=== PATIENT | male | born 1955 | race Caucasian/White ===

== ENCOUNTER 2017-03-22 16:26 | Observation (INO) | payer BC, SELFPAY ==
[~2017-03-22 16:26] MED LIST: ISOVUE-370 76%-LOCM 1 ML ONE
[2017-03-22] MEDS ORDERED: Ondansetron ODT 4 MG TAB ONE (16:54)
[2017-03-22 18:44] LABS: #Basophils 0.1 thou/uL (0.0-0.2); #Lymphocytes 1.3 thou/uL (1.20-3.40); #Monocytes 0.8 thou/uL (0.11-0.59); #Neutrophils 4.1 thou/uL (1.40-6.50); %Basophils 0.9 % (0.0-1.0); %Eosinophils 0.4 % (0.0-10.0); %Lymphocytes 21.4 % (21.0-51.0); %Monocytes 12.3 % (0.0-10.0); Hematocrit 43.8 % (42.0-52.0); Red Blood Cell (RBC) Count 4.36 mill/uL (4.70-6.10); White Blood Cell (WBC) Count 6.3 thou/uL (4.8-10.8)
[2017-03-22 19:07] LABS: ALT (SGPT) 24 U/L (8-55); AST (SGOT) 24 U/L (5-34); Alkaline Phosphatase 135 U/L (40-150); Anion Gap 17 mmol/L (10-20); BUN (Urea Nitrogen) 9 mg/dL (8.4-25.7); Bilirubin, Total 0.4 mg/dL (0.2-1.2); Calc. Creatinine Clearance 0 mL/min (70-130); Carbon Dioxide 22 mmol/L (23-31); Chloride 102 mmol/L (98-107); Estimated GFR-MDRD Greater than 90; Protein, Total 7.4 g/dL (5.8-8.1)
[2017-03-22 19:45] LABS: Bilirubin Negative (Negative); Blood, Urine Negative (Negative); Glucose, Urine (Dipstick) Negative (Negative); Ketone, Urine Negative (Negative); Nitrite Negative (Negative); Protein, Urine (Dipstick) Trace mg/dL (Neg-Trace); Urobilinogen 0.2 mg/dL (0.2-1.0)
[2017-03-22 19:55] LABS: Amphetamine Not Detected (NotDetected); Methadone Not Detected (NotDetected); Methamphetamine Not Detected (NotDetected)
[2017-03-22 20:18] LABS: Acetaminophen Less than 6.0 mcg/mL (10.0-30.0); Salicylate Less than 8.0 mg/dL (15.0-30.0)
[2017-03-22] MEDS ORDERED: Ondansetron HCl/PF 4 MG/2 ML Vial ONE (20:24)
[2017-03-22] MEDS ORDERED: Morphine 4 MG/ML VIAL ONE ×2 (20:24→23:49)
[2017-03-22] MEDS ORDERED: Multivitamins, Adult 10 ML, Thiamine HCl 100 MG, Folic Acid 1 MG in Dextrose 5 %-0.45 %... IV SCH ×4 (20:30)
[2017-03-22] MEDS ORDERED: diphenhydrAMINE 50 MG/ML VIAL ONE (21:12)
[2017-03-22] MEDS ORDERED: methylPREDNISolone Sod Succ/PF 125 MG/2 ML VIAL ONE (21:13)
[2017-03-22] MEDS ORDERED: Famotidine/PF 20 mg/2ml Vial ONE (21:13)
[2017-03-22 22:19] LABS: Troponin I Less than 0.010 ng/mL (< 0.028)
--- NOTE | 2017-03-22 23:18 | CT ---
CT ABDOMEN AND PELVIS WITH IV CONTRAST 03/22/17 PROVIDED CLINICAL HISTORY: Right lower quadrant pain. FINDINGS: The visualized lung bases appear clear. The solid abdominal organs demonstrate an unremarkable CT rosey earance. There is no bowel dilatation, inflammatory fat stranding, free fluid or free air apparent. The append ix appears normal. Vascular calcifications are seen. The osseous structures demonstrate no concerning osteoblastic or os teolytic lesions. There is material of increased density seen within the cranial aspects of the sacral spinal canal, in completely characterized on the basis of this study. IMPRESSION: 1. No evidence for an acute intra-abdominal process. 2. Nonspecific material of increased density seen within the cranial aspects of the sacral spina l canal. Nonemergent correlation with a MRI of the lumbar spine with and without IV contrast is recom mended. POS: CARLOS
[2017-03-22] MEDS ORDERED: Labetalol HCl 100 MG/20 ML VIAL ONE (23:37)
[2017-03-23 02:21] LABS: Troponin I Less than 0.010 ng/mL (< 0.028)
[2017-03-23] MEDS ORDERED: Mag-Al 1200 mg/1200 mg/30 ML UDCUP ONE (04:57)
[2017-03-23 04:59] LABS: Troponin I Less than 0.010 ng/mL (< 0.028)
[2017-03-23 11:16] LABS: #Lymphocytes 0.4 thou/uL (1.20-3.40); #Monocytes 0.2 thou/uL (0.11-0.59); #Neutrophils 2.7 thou/uL (1.40-6.50); %Basophils 0.2 % (0.0-1.0); %Eosinophils 0.1 % (0.0-10.0); %Lymphocytes 12.9 % (21.0-51.0); %Monocytes 4.5 % (0.0-10.0); Hematocrit 47.6 % (42.0-52.0); Mean Platelet Volume 6.3 fL (7.4-10.4); Red Blood Cell (RBC) Count 4.74 mill/uL (4.70-6.10); White Blood Cell (WBC) Count 3.3 thou/uL (4.8-10.8)
[2017-03-23] MEDS ORDERED: Ondansetron ODT 4 MG TAB PO PRN (11:39)
[2017-03-23] MEDS ORDERED: Ondansetron HCl/PF 4 MG/2 ML Vial IVP PRN (11:39)
[2017-03-23] MEDS ORDERED: Bisacodyl 5 MG TAB PO PRN (11:39)
[2017-03-23] MEDS ORDERED: Acetaminophen 650 MG Suppository PR PRN (11:39)
[2017-03-23 11:52] LABS: ALT (SGPT) 23 U/L (8-55); AST (SGOT) 15 U/L (5-34); Alkaline Phosphatase 134 U/L (40-150); Anion Gap 14 mmol/L (10-20); BUN (Urea Nitrogen) 8 mg/dL (8.4-25.7); Bilirubin, Direct 0.3 mg/dL (0.1-0.3); Bilirubin, Total 0.8 mg/dL (0.2-1.2); Calc. Creatinine Clearance 0 mL/min (70-130); Calcium 9.7 mg/dL (7.8-10.44); Carbon Dioxide 27 mmol/L (23-31); Chloride 98 mmol/L (98-107); Estimated GFR-MDRD 85; Globulin 2.9 g/dL (2.4-3.5); Protein, Total 7.5 g/dL (5.8-8.1)
[2017-03-23 11:54] VITALS: BMI 26.4
[2017-03-23] MEDS ORDERED: Diazepam 5 MG TAB PO PRN (11:56)
[2017-03-23] MEDS ORDERED: Thiamine HCl 200 MG/2 ML VIAL IM SCH (12:00)
[2017-03-23] MEDS ORDERED: Diazepam 5 MG TAB PO SCH (12:00)
[2017-03-23] MEDS: Acetaminophen 325 MG TAB PO PRN ×2 (12:04→16:21)
[2017-03-23] MEDS: Sodium Chloride 0.9% 1,000 ML IV SCH ×2 (12:04→23:24)
[2017-03-23] MEDS ORDERED: cloNIDine 0.1 MG TAB PO PRN (14:17)
[2017-03-23] MEDS ORDERED: Amlodipine 10 MG TAB PO SCH (14:30)
[2017-03-23] MEDS: Docusate 100 MG CAP PO SCH (21:49)
--- NOTE | 2017-03-23 22:36 | HP ---
PRIMARY CARE PHYSICIAN: City call. CHIEF COMPLAINT: Alcohol withdrawal and abdominal pain. HISTORY OF PRESENT ILLNESS: This is a 62-year-old white male with a known history of alcoholism, rep orts that he had been off alcohol for about 5 months and then earlier in March he developed confus ion, was admitted to [facility] in [place] and found to have sodium of about 110 or 111. He denies drinking a lot of water at that time, but states that he got very dehydrated at his work. After miguel caridad was stabilized, he was discharged. He started drinking alcohol again, has been drinking for the couple of weeks wine about a liter a day. He states that the last alcoholic drink was yesterday m orning before he came into the emergency room; it was 1 or 2 liters of wine, but when he presented to the emergency room, he stated it was actually mouthwash. He did not have any alcohol in his system at the time of presentation in the ER, but was in significant withdrawal. He was very shaky, very an xious, sweating. Blood pressure was elevated, highest was 183/117 in the emergency room. The patien t also had significant pain when he came into the emergency room, an epigastric boring pain, not movi ng anywhere. With fluid repletion and treatment of his withdrawal symptoms with Valium, he has marke d improvement in symptoms, no longer feeling anxious or shaky, and his abdominal pain has completely resolved. PAST MEDICAL HISTORY: 1. Hypertension. 2. Alcoholism since his mid 50s. PAST SURGICAL HISTORY: Left knee arthroscopy, right shoulder, basal cell carcinoma and left spermati c cord surgery after bleeding into his scrotum, umbilical hernia repair. SOCIAL HISTORY: Patient is . He is living with a [facility] roommate. He is villafuerte pposed to move with the roommate from that group in [place] later this month. The patient vapes smal l amount daily, quit smoking cigarettes in 2016. Denies any illicit drug use. He is currently unemp loyed. ALLERGIES: No known drug allergies. CURRENT MEDICATIONS: 1. Amlodipine 10 mg daily. 2. Wellbutrin 300 mg daily. PSYCHIATRIC HISTORY: Includes depression, ADHD, and alcohol dependence. REVIEW OF SYSTEMS: Constitutional: No fevers or chills. He has had sweats. Eyes: No double vision or blurred vision. ENT: No congestion, drainage or sore throat. Cardiovascular: No chest pain or palpitations. He has had significant anxiety and racing heart with his withdrawal symptoms. Pulmonary: No coughing, wheezing or shortness of breath. Gastrointestinal: Abdominal pain as per HPI, now resolved. No linda sea or vomiting, no diarrhea or constipation. Genitourinary: No dysuria or hematuria. Musculoskele kareem: No muscle aches or joint pains. Skin: No rashes or lesions that he has noticed. Neurologic: Feel shaking of his extremities better after the Valium. No focal neurologic deficits, no headache. Psychiatric: No significant depression right now. He does have positive for anxiety, better with the Valium. He denies any hallucinations. PHYSICAL EXAMINATION: VITAL SIGNS: Blood pressure 195/113. Currently, has been running in the 160s/100s. The most recent blood pressure was taken before he got his Valium but he was still very shaky on the floor, nurses r echecking right now. HEENT: Pupils equal, round, and reactive to light. Extraocular movements intact. No nystagmus. Or opharynx clear without lesions, erythema or exudate. NECK: Supple, no lymphadenopathy, no thyroid nodules or enlargement, no JVD. HEART: Regular rate and rhythm, no murmurs, rubs or gallops. LUNGS: Clear to auscultation bilaterally, no wheezes, crackles or rhonchi. ABDOMEN: Soft, nontender to palpation, normoactive bowel sounds, no hepatosplenomegaly or other mass es. EXTREMITIES: No clubbing, cyanosis or edema. SKIN: No rashes or other lesions noted. NEUROLOGIC: Cranial nerves intact and equal bilaterally. He has very mild tremor in his hands. Cur rently, it was much worse earlier before his Valium per the nursing. No focal deficits. PSYCHIATRIC: Alert, oriented x3, normal mood and affect. LABORATORY DATA: CBC, white blood cell count was 6.3, now down to 3.3 with 82% neutrophils. Normal hemoglobin and hematocrit. His complete metabolic panel was notable for sodium of 134 and glucose of 180. The remainder is normal. His CK-MB was initially elevated at 12.1, but his troponins have bee n negative x3. His creatinine kinase was normal. Lipase was negative. Urinalysis was negative for infection. His urine drug screen was negative. His plasma alcohol level was 82, syphilis was negati ve. CT of the abdomen and pelvis was done in the emergency room. This showed a nonspecific material in increased density within the cranial aspect of the sacral spinal canal, nonemergent MRI recommend ed for further evaluation, but no abdominal pathology noted. ASSESSMENT AND PLAN: 1. Acute alcohol withdrawals. Patient does have hypertension and tachycardia. We will make certain that this is resolved with treatment with Valium. He is not having any hallucinations or altered me ntal status or other signs of severe delirium tremens. We will watch the patient over the course thr ough today and see how he responds. If his vital signs normalized, then he is tolerating the overall symptoms withdrawal well and he can be discharged with a Librium taper. Otherwise, we will need to keep him longer. 2. Hypertension, severely elevated with his alcohol withdrawal. We will resume his daily, amlodipin e and will give p.r.n. clonidine if the blood pressure does not come down with benzodiazepines. 3. Gastrointestinal prophylaxis. Abdominal pain related to patient's GI prophylaxis. The abdominal pain related to patient's withdrawal, if he gets this regularly withdrawal symptoms, it is now compl etely resolved with treatment with benzodiazepines, so we will put him on Protonix here in the hospit al and observe and give him a normal diet. 4. Elevated CK-MB, negative troponins and negative CK, possibly related to patient's withdrawal synd ranjan, but no evidence of cardiac etiology at this point. 5. Deep venous thrombosis prophylaxis. Put the patient on sequential compression devices and TEDs w hile he is in the bed. We will hold off on Lovenox for now as he is likely to go home soon. CODE STATUS: The patient is a FULL CODE.
[2017-03-24] MEDS ORDERED: Diazepam 5 MG TAB PO PRN (04:00)
[2017-03-24 05:28] LABS: #Lymphocytes 1.2 thou/uL (1.20-3.40); #Neutrophils 5.9 thou/uL (1.40-6.50); %Basophils 0.5 % (0.0-1.0); %Eosinophils 0.3 % (0.0-10.0); %Lymphocytes 14.3 % (21.0-51.0); %Monocytes 11.8 % (0.0-10.0); Hematocrit 41.1 % (42.0-52.0); Mean Platelet Volume 6.5 fL (7.4-10.4); Red Blood Cell (RBC) Count 4.04 mill/uL (4.70-6.10)
[2017-03-24 05:52] LABS: Anion Gap 11 mmol/L (10-20); BUN (Urea Nitrogen) 16 mg/dL (8.4-25.7); Calc. Creatinine Clearance 128 mL/min (70-130); Calcium 8.8 mg/dL (7.8-10.44); Carbon Dioxide 27 mmol/L (23-31); Chloride 105 mmol/L (98-107); Estimated GFR-MDRD Greater than 90
[2017-03-24 08:39] VITALS: BP 120/76; TEMP 97.9
[2017-03-24] MEDS: Docusate 100 MG CAP PO SCH (08:47)
[2017-03-24] MEDS: Sodium Chloride 0.9% 1,000 ML IV SCH (08:47)
[2017-03-24] MEDS ORDERED: Bupropion 150 MG XL TAB PO SCH (09:00)
[2017-03-24] MEDS ORDERED: Folic Acid 1 MG TAB PO SCH (09:00)
[2017-03-24] MEDS ORDERED: Multivitamin W/ Minerals 1 TAB PO SCH (09:00)
[2017-03-24] MEDS ORDERED: Amlodipine 10 MG TAB PO SCH (09:00)
[2017-03-24] MEDS ORDERED: Magnesium Oxide 400 MG TAB PO SCH (09:00)
--- NOTE | 2017-03-24 13:04 | DIS ---
PRIMARY CARE PHYSICIAN: Kunal mcghee. DIAGNOSES ON ADMISSION: 1. Acute alcohol withdrawal. 2. Severe hypertension. DIAGNOSES ON DISCHARGE: 1. Alcohol withdrawal has improved. 2. Severe hypertension, resolved. PROCEDURES: CT of the abdomen and pelvis showing no acute intraabdominal pathology. CONSULTATIONS: None. SUMMARY OF HOSPITAL COURSE: This is a 62-year-old white male with a known history of alcoholism who relapsed for a couple of weeks and drinking 1-2 liters of wine per day. He decided to stop and pres ented to the emergency room in acute withdrawals. He was shaking, anxious, sweating, high blood pres sure. He was also having significant midepigastric abdominal pain which is typical for his withdrawa ls. He had a CT scan that was negative for any intraabdominal pathology. The patient was put in the hospital under observation. He was given IV fluids, banana bag along with ASE protocol. He did well with significant improvement, almost resolution of his symptoms, just a little bit of shakiness in h is hands and is taking p.o. well and is ready for discharge this morning. DISCHARGE MANAGEMENT: Discharged home. Follow up with primary care physician in the next week. ACTIVITY: As tolerated. DIET: Healthy heart, low sodium diet. ACTIVITIES: As tolerated. MEDICATIONS: The patient is to resume his amlodipine 10 mg daily, Bupropion Wellbutrin-XL 300 mg eac h morning. I am adding chlordiazepoxide, Librium taper over the next 3-4 days to be taken as directe d on the prescription. The patient states that his aunt is going to allow him to stay at her house w hen he leaves the hospital.
--- NOTE | 2017-03-24 13:44 | PDOC.PN ---
- Subjective Encounter Start Date: 03/24/17 Encounter Start Time: 09:00 Subjective: Patient just a little shakey this AM. High blood pressure resolved. -: No Benzos needed this AM. No more abdominal pain - Objective Resuscitation Status: Resuscitation Status FULL:Full Resuscitation MAR Reviewed: Yes Vital Signs & Weight: Vital Signs (12 hours) Temp Pulse Resp BP BP Pulse Ox 03/24/17 08:47 97.9 F 65 16 03/24/17 07:40 97.9 F 65 16 120/76 97 03/24/17 04:30 80 18 140/83 95 Weight Weight 195 lb 3.2 oz I&O: 03/23/17 03/24/17 03/25/17 06:59 06:59 06:59 Intake Total 1000 Output Total 1700 1200 Balance -700 -1200 Result Diagrams: 03/24/17 04:57 03/24/17 04:57 Phys Exam - Physical Examination Constitutional: NAD HEENT: moist MMs Respiratory: no wheezing, no rales, no rhonchi, clear to auscultation bilateral Cardiovascular: RRR, no significant murmur Gastrointestinal: soft, non-tender, positive bowel sounds Neurological: non-focal, moves all 4 limbs mild tremor to both hands Psychiatric: normal affect, A&O x 3 Dx/Plan (1) Alcohol dependence with withdrawal Code(s): F10.239 - ALCOHOL DEPENDENCE WITH WITHDRAWAL, UNSPECIFIED Status: Acute Qualifiers: Complication of substance-induced condition: uncomplicated Qualified Code(s ): F10.230 - Alcohol dependence with withdrawal, uncomplicated (2) Hypertension Code(s): I10 - ESSENTIAL (PRIMARY) HYPERTENSION Status: Acute Qualifiers: Hypertension type: essential hypertension Qualified Code(s): I10 - Essential (primary) hypertension Comment: BP improved today (3) Abdominal pain Code(s): R10.9 - UNSPECIFIED ABDOMINAL PAIN Status: Resolved - Plan Safe to d/c with Librium taper. Aunt will let him stay with her in town. * . - Discharge Day Encounter end time: 09:30
== END 2017-03-24 10:17 | disposition home or self-care (01) ==
LOC: ERS 16:26 → ERHOLD 23:25 → 2SW 03-23 11:43
PROVIDERS: ADMIT Internal Medicine; ATTEND Internal Medicine
DX: F10.239 Alcohol dependence with withdrawal, unspecified (principal); I10 Essential (primary) hypertension; F32.9 Major depressive disorder, single episode, unspecified; F90.9 Attention-deficit hyperactivity disorder, unspecified type; R74.8 Abnormal levels of other serum enzymes; F17.290 Nicotine dependence, other tobacco product, uncomplicated; Z79.899 Other long term (current) drug therapy; Z98.890 Other specified postprocedural states; Z91.041 Radiographic dye allergy status
CPT/HCPCS: 36415; 74177; 80048; 80053; 80306; 80307; 81003; 82248; 82550; 82553; 83690; 84484; 85025; 86780; 93005; 96361; 96365; 96366; 96372; 96375; 96376; 99406; G0378; J1200; J2270; J2405; J2930; J3411; J3475; J7042; J7050; Q0162; S0028